=== PATIENT | female | born 1985 | race Caucasian/White ===

== ENCOUNTER 2017-01-29 18:21 | Emergency (ER) | payer OTHER ==
[~2017-01-29] VITALS: Ht 157.5 cm; Wt 100.6 kg
[2017-01-29] MEDS ORDERED: CLEOCIN300 MG PO (19:47)
[2017-01-29 20:26] VITALS: BP 130/78
== END 2017-01-29 20:26 | disposition home or self-care (01) ==
LOC: EME 18:21
DX: K04.7 Periapical abscess without sinus (principal); F17.200 Nicotine dependence, unspecified, uncomplicated
CPT/HCPCS: 99281; 99284